=== PATIENT | female | born 1995 | race Caucasian/White ===

== ENCOUNTER 2016-10-01 14:20 | Emergency (ER) | payer MEDICAID ==
[~2016-10-01] VITALS: Ht 160 cm; Wt 82.1 kg
[2016-10-01 14:30] VITALS: BP 96/65
[2016-10-01] MEDS ORDERED: DEXAMETHASONE 4 MG TABLET PO ONE (15:30)
[2016-10-01] MEDS ORDERED: DEXAMETHASONE 4 MG TABLET ONE (15:32)
== END 2016-10-01 15:44 | disposition home or self-care (01) ==
LOC: ED 15:30
DX: J20.8 Acute bronchitis due to other specified organisms (principal); B96.89 Other specified bacterial agents as the cause of diseases classified elsewhere; F17.210 Nicotine dependence, cigarettes, uncomplicated
CPT/HCPCS: 71020; 99284

== ENCOUNTER 2016-10-31 19:13 | Emergency (ER) | payer MEDICAID ==
[2016-10-31] MEDS ORDERED: METOCLOPRAMIDE 5 MG/ML, 2ML ONE (19:58)
[2016-10-31] MEDS ORDERED: DIPHENHYDRAMINE 50 MG/ML, 1ML ONE (19:58)
[2016-11-03 12:10] LABS: BLOOD UREA NITROGEN 8 mg/dL (7-18)
== END 2016-10-31 22:17 ==
LOC: ED 19:13
DX: G43.009 Migraine without aura, not intractable, without status migrainosus (principal); E86.0 Dehydration
CPT/HCPCS: 36415; 80048; 85025; 87086; 93005; 99285